=== PATIENT | male | born 1980 | race Caucasian/White ===

== ENCOUNTER 2020-10-07 13:07 | Outpatient (CLI) | payer OTHER ==
[2020-10-07 20:18] LABS: ESTIMATED AVERAGE GLUCOSE 114 mg/dL (70-100); HEMOGLOBIN A1c% 5.6 % (4.27-6.07)
== END 2020-10-07 13:08 | disposition home or self-care (01) ==
LOC: LAB.S 13:07
PROVIDERS: ATTEND Physician Assistant
DX: R63.1 Polydipsia (principal); Z83.3 Family history of diabetes mellitus; R35.8 Other polyuria
CPT/HCPCS: 36415; 83036

== ENCOUNTER 2020-10-14 15:24 | Outpatient (CLI) | payer OTHER ==
--- NOTE | 2020-10-14 16:30 | XRAY Report ---
PROCEDURE: Thoracic Spine 3 View INDICATIONS: THORACIC BACK PAIN TECHNIQUE: 3 views of the thoracic spine were acquired. COMPARISON: None. FINDINGS: Bones: No fractures or dislocations. No suspicious bony lesions. 12 pairs of ribs are noted, and a ppear intact where visualized. Soft tissues: No paravertebral stripe thickening. IMPRESSION: This is a normal study. No compression fracture found, source of pain isn't seen. Reviewed by: Juan Esquivel MD on 10/14/2020 4:29 PM PDT Approved by: Juan Esquivel MD on 10/14/2020 4:29 PM PDT Station ID: [id number]
== END 2020-10-14 15:25 | disposition home or self-care (01) ==
LOC: DI.S 15:24
PROVIDERS: ATTEND Physician Assistant
DX: M54.6 Pain in thoracic spine (principal)

== ENCOUNTER 2020-11-13 06:11 | Day surgery (SDC) | payer OTHER ==
[2020-11-13] MEDS ORDERED: ceFAZolin 2 GM/50 ML 0 GM/0 ML BAG IV ONE (06:12)
[2020-11-13] MEDS ORDERED: ceFAZolin 2 GM/50 ML 2 GM/50 ML BAG IV ONE (06:26)
[2020-11-13] MEDS ORDERED: LACTATED RINGERS 1,000 ML IV ONE (06:30)
[2020-11-13] MEDS ORDERED: BUPIVACAINE 0.25% PF 30 ML VIAL ONE (07:08)
[2020-11-13] MEDS ORDERED: MIDAZOLAM 2 MG/2 ML VIAL ONE (07:21)
[2020-11-13] MEDS ORDERED: fentaNYL 100 MCG/2 ML VIAL ONE ×2 (07:21→10:46)
--- NOTE | 2020-11-13 07:29 | ANESTHESIA ---
Pre-Anesthesia VS, & Labs - Diagnosis pilonidal cyst - Procedure rhomboid rotational flap for pilonidal cyst Vital Signs: Temp Pulse Resp BP Pulse Ox 36.2 C L 58 L 20 114/75 97 11/13/20 06:33 11/13/20 06:33 11/13/20 06:33 11/13/20 06:33 11/13/20 06:33 Height: 6 ft Weight (kg): 78 kg Body Mass Index: 23.3 BMI Classification: Healthy weight - NPO >8 hours Home Medications and Allergies Home Medications: Ambulatory Orders Acetaminophen [Tylenol] 650 mg PO Q6H PRN 11/06/20 Ibuprofen [Motrin] 600 mg PO Q6H PRN 11/06/20 Acetaminophen [Tylenol] 650 mg PO Q6H PRN 11/06/20 Ibuprofen [Motrin] 600 mg PO Q6H PRN 11/06/20 Allergies/Adverse Reactions: Allergies Allergy/AdvReac Type Severity Reaction Status Date / Time shellfish derived Allergy Severe Anaphylaxis Verified 11/13/20 07:21 Anes History & Medical History - Medical History Cardiovascular: reports: None Pulmonary: reports: None Gastrointestinal: reports: None Urinary: reports: Frequency Neuro: reports: None Musculoskeletal: reports: Chronic back pain Endocrine/Autoimmune: reports: None Blood Disorders: reports: None Skin: reports: Eczema Smoking Status: Former smoker Psychosocial: reports: Cannabis (daily, none for 2 days) History of Cancer?: No - Surgical History Eyes Ears Nose Throat (EENT): reports: Tonsil/Adenoidectomy Orthopedic: reports: Spine surgery, Other (right femur ORIF) Exam General: Alert, Oriented x3, Cooperative, No acute distress Dental: WNL Mouth Openin Fingerbreadth Neck Mobility: Normal Mallampati classification: III Thyromental Distance: 4-6 cm Mental/Cognitive Status: Alert/Oriented X3, Normal for patient Plan Anesthesia Type: General Consent for Procedure(s) Verified and Reviewed: Yes Code Status: Attempt Resuscitation ASA classification: 2-Mild systemic disease Is this case an emergency?: No
[2020-11-13] MEDS ORDERED: BUPIVACAINE 0.25% PF 30 ML VIAL SUBQ ONE (08:37)
[2020-11-13] MEDS ORDERED: KETAMINE 500 MG/10 ML VIAL ONE (08:47)
[2020-11-13] MEDS ORDERED: DEXAMETHASONE 4 MG/ML VIAL ONE (09:30)
[2020-11-13] MEDS ORDERED: ONDANSETRON 4 MG/2 ML VIAL ONE (09:30)
[2020-11-13] MEDS ORDERED: SUGAMMADEX 200 MG/2 ML VIAL IVP ONE (10:01)
[2020-11-13] MEDS ORDERED: LACTATED RINGERS 600 ML IV ONE (10:08)
[2020-11-13] MEDS ORDERED: ACETAMINOPHEN 1,000 MG/100 ML 100 ML IV ONE (10:21)
[2020-11-13] MEDS ORDERED: ePHEDrine 50 MG/ML VIAL IVP PRN (10:23)
[2020-11-13] MEDS ORDERED: HYDROmorphone 0.5 MG/0.5 ML SYRINGE IVP PRN (10:23)
[2020-11-13] MEDS ORDERED: fentaNYL 100 MCG/2 ML VIAL IVP PRN (10:23)
[2020-11-13] MEDS ORDERED: ONDANSETRON 4 MG/2 ML VIAL IVP PRN (10:23)
[2020-11-13] MEDS ORDERED: METOCLOPRAMIDE 10 MG/2 ML VIAL IVP PRN (10:23)
[2020-11-13] MEDS ORDERED: MORPHINE 2 MG/ML CARPUJECT IVP PRN (10:23)
[2020-11-13] MEDS ORDERED: ATROPINE ABBOJECT 1 MG/10 ML SYRINGE IVP PRN (10:23)
[2020-11-13] MEDS ORDERED: NALOXONE 0.4 MG/ML VIAL IVP PRN (10:23)
--- NOTE | 2020-11-13 10:31 | OPERATIVE REPORT ---
Operative Report - General Procedure Date: 11/13/20 Planned Procedure: 1. Exam under anesthesia 2. Pilonidal cystectomy 3. Rhomboid rotational reconstructive flap 4. Other indicated procedures Pre-Op Diagnosis: Recurrent pilonidal disease; chronic sacral discomfort Procedure Performed: 1. Exam under anesthesia 2. Pilonidal cystectomy 3. Rhomboid rotational reconstructive flap 4. Wide local excision cyst and abscesses 5. Washout and debridement 7. Complex closure 8. Drain placement Post Op Diagnosis: Same; multiple complex cystic structures questionable infection - Procedure Note Primary Surgeon: Eulogio Secondary Surgeon: Clayton Anesthesia Provider: Bang Anesthesia Technique: General ET tube, Local Pathology: 1. Pilonidal cyst 2. deep sacral margin Estimated Blood Loss (mL): 50 Drain/Tube Type: Mark drain Indications: See EMR Findings: 1. Multiple sinus tracts midline noted and chronic pilonidal disease 2. Multiple left lateral deep cystic structures questionable abscesses excised en bloc 3. Extensive washout with no signs of residual inflammation or infection 4. Rhomboid flap harvested from the right buttock with no tension viable 5. No anal communication Complications: NONE - Other Other Information/Narrative: OPERATIVE REPORT: The patient was taken to the operating room after informed consent was obtained and confirmed. The patient was kept supine on the stretcher, at which time the patient was placed for bilateral lower extremity serial compression devices and induced for general endotracheal anesthesia. A Guevara catheter was inserted. The patient was placed prone on the operating table with all pressure points padded and offloaded. With the patient prone, the buttocks were using silk tape; the wound was prepped and draped in the usual sterile fashion. Perioperative antibiotics of Ancef were dosed; a time-out was called and agreed upon by all in the room. With the patient appropriately positioned and again time-out called and agreed upon, a lacrimal duct probe was placed through the communicating sinus of the pilonidal tract and unroofed. Once this was achieved, this was incised and opened using electrocautery. Findings are as follows: Complex multiple tracts to the left deep sacral space. These ultimately or independent pilonidal cysts questionably infected that was able to be excised en bloc without any spillage. Given the size of defect and the proximity of the anus and the persistent disease, the cyst was excised to healthy tissue using Bovie electrocautery. The resulting defect was considered for a midline closure, however, bearing in mind the wound relative to the sacrum, it was concerning for failure and dehiscence from associated pressure. Thus, at this time, options including marsupialization were also considered. However, again, concern was that the bony prominences of the sacrum would also increase the risk of failure in this patient with history of prior outpatient management. Deeper margins were taken to include the base of the sacrum. 2 separate specimens were sent to include the pilonidal containing skin and subcutaneous sacral tissue as well as a deeper margin independently. The area was aggressively debrided and thereafter pulse lavage for 2 L of warm sterile sa line. Hemostasis was achieved without any complication. Thus, a local RHOMBOID advancement flap was planned with a flap of tissue suitable to address resulting defect after resection. This was harvested from the right buttock. Size was approximately 10-12 cm by 10-12 cm. The lipo-fascial pedicle was kept intact. Once it was appropriately sized, this was rotated to cover the defect; deep dermals of 2-0 PDS were used to reapproximate the tissues. Dermal sutures of 3-0 Monocryl were used to reapproximate the skin edge as well. We used 4-0 monocryl for subcuticular. Wound was irrigated extensively prior to closure. With the rhomboid advanced and rotated into place, the sacrum was completely covered by a lipodermato island of tissue, which would provide sufficient coverage to prevent and reduce the risk of failure. Further, the suture lines were offset from the midline as well. The harvest site was also closed in interrupted fashion using deep dermals of 2-0 and 3-0 PDS and Monocryl respectively. With rhomboid flap rotated into place with no tension, it was hemostatic, and viable. The flap was without ischemic changes. Hemostasis was maintained and achieved. A Mark CATHERINE drain was placed to prevent seroma and hematoma, which would potentially compromise the flap as well. The wound was dressed with the dermabond skin closure system across all suture lines. At this time, all counts for sponges, needles, and instruments had already been confirmed as correct. There were no complications. The patient tolerated procedure well. The patient was taken to post-anesthesia care unit in stable condition. Present for the entirety of this operative intervention. Please note that voice recognition software was used to transcribe this note and inadvertent errors might persist in spite of review and editing. I am obliged to you for your attention. I am thankful to you for allowing me to participate with you in this care of this patient.
[2020-11-13] MEDS ORDERED: LACTATED RINGERS 1,000 ML IV SCH (11:00)
[2020-11-13] MEDS ORDERED: ACETAMINOPHEN 1,000 MG/100 ML 100 ML IV SCH (11:00)
--- NOTE | 2020-11-13 11:35 | ANESTHESIA POST OP EVALUATION ---
Anesthesia Post Eval - Post Anesthesia Eval Vitals: Last Vital Signs Temp 36.7 C 11/13/20 11:33 Pulse 67 11/13/20 11:33 Resp 16 11/13/20 11:33 BP 99/58 L 11/13/20 11:33 Pulse Ox 96 11/13/20 11:33 CV Function Including HR & BP: Stable Pain Control: Satisfactory Nausea & Vomiting: Negative Mental Status: Baseline Respiratory Status: Airway Patent Hydration Status: Satisfactory Anesthesia Complications: None
[2020-11-13] MEDS: oxyCODONE 5 MG TABLET ONE ×2 (12:11→12:13)
[2020-11-13 13:34] VITALS: BP 108/58
== END 2020-11-13 06:12 | disposition home or self-care (01) ==
LOC: SDS 06:11
PROVIDERS: ATTEND Surgery
PROC: 0HX8XZZ Transfer Buttock Skin, External Approach (ICD-10-PCS; 2020-11-13)
PROC: 0JB90ZZ Excision of Buttock Subcutaneous Tissue and Fascia, Open Approach (ICD-10-PCS; principal; 2020-11-13 07:30)
DX: L05.91 Pilonidal cyst without abscess (principal); Z87.891 Personal history of nicotine dependence
CPT/HCPCS: 11772; 14301; 14302; A9270; J0131; J0690; J7120

== ENCOUNTER 2023-12-22 10:56 | Outpatient (CLI) | payer BC ==
[2023-12-22 11:22] LABS: BASOPHILS % (AUTO) 0.7 %; EOSINOPHILS # (AUTO) 0.2 10^3/uL (0.0-0.7); HCT - HEMATOCRIT 43.4 % (42.0-52.0); HGB - HEMOGLOBIN 14.8 g/dL (14.0-18.0); LYMPHOCYTES # (AUTO) 1.6 10^3/uL (1.5-3.5); LYMPHOCYTES % (AUTO) 28.6 %; MEAN CORPUSCULAR HEMOGLOBIN 32.5 pg (27.0-31.0); MEAN CORPUSCULAR HGB CONC 34.1 g/dL (32.0-36.0); MEAN CORPUSCULAR VOLUME 95.4 fL (80.0-94.0); MEAN PLATELET VOLUME 11.1 fL (7.4-11.4); MONOCYTES # (AUTO) 0.7 10^3/uL (0.0-1.0); MONOCYTES % (AUTO) 12.4 %; NEUTROPHILS # (AUTO) 3.1 10^3/uL (1.5-6.6); NEUTROPHILS % (AUTO) 55.1 %; PLT - PLATELET COUNT 200 10^3/uL (130-450); RED BLOOD COUNT 4.55 10^6/uL (4.70-6.10); RED CELL DISTRIBUTION WIDTH 12.3 % (12.0-15.0); WHITE BLOOD COUNT 5.6 x10^3/uL (4.8-10.8)
[2023-12-22 11:40] LABS: ALBUMIN 4.4 g/dL (3.2-5.5); ALBUMIN/GLOBULIN RATIO 1.4 (1.0-2.2); ALKALINE PHOSPHATASE 72 IU/L (42-121); ALT ALANINE AMINOTRANSFERASE 22 IU/L (10-60); AST ASPARTATE AMINOTRANSFERASE 17 IU/L (10-42); BILIRUBIN,TOTAL 0.7 mg/dL (0.2-1.0); BUN - BLOOD UREA NITROGEN 17 mg/dL (6-20); CALCIUM 9.3 mg/dL (8.5-10.3); CARBON DIOXIDE - CO2 26 mmol/L (21-32); CHLORIDE 105 mmol/L (101-111); CHOL/HDL RATIO 3.2 (<5.0); CHOLESTEROL 177 mg/dL; CREATININE 0.8 mg/dL (0.6-1.3); GFR - MDRD 106 (>89); GLUCOSE 118 mg/dL (74-104); HDL CHOLESTEROL 55 mg/dL; LDL CHOLESTEROL,CALCULATED 106 mg/dL; LDL/HDL RATIO 1.9 (<3.6); SODIUM 137 mmol/L (135-145); TOTAL PROTEIN 7.5 g/dL (6.4-8.9); TRIGLYCERIDES 80 mg/dL; VLDL CHOLESTEROL 16 mg/dL
[2023-12-22 11:56] LABS: THYROID STIMULATING HORMONE 1.59 uIU/mL (0.34-5.60)
[2023-12-22 12:08] LABS: INFLUENZA A- RESP PCR PANEL NOT DETECTED; INFLUENZA B - RESP PCR PANEL NOT DETECTED; RSV- RESP PCR PANEL NOT DETECTED; SARS-CoV-2 -RESP PCR PANEL NOT DETECTED
[2023-12-22 13:01] LABS: ESTIMATED AVERAGE GLUCOSE 111 mg/dL (70-100); HEMOGLOBIN A1c% 5.5 % (4.27-6.07)
== END 2023-12-22 10:57 | disposition home or self-care (01) ==
LOC: LAB 10:56
PROVIDERS: ATTEND Nurse Practitioner Gerontology
DX: Z00.00 Encounter for general adult medical examination without abnormal findings (principal); R07.0 Pain in throat
CPT/HCPCS: 36415; 80053; 80061; 83036; 83721; 84153; 84443; 85025; 87070; 87637